=== PATIENT | male | born 1935 | race Caucasian/White ===

== ENCOUNTER → 2016-06-20 | Outpatient (CLI) | payer MEDICARE, OTHER ==
[~2016-06-20] MED LIST: ALDACTONE25 MG PO; ARICEPT10 MG PO; ASPIRIN CHEWABL81 MG PO; ASPIRIN EC81 MG PO; CARAFATE1 GM PO; FERROUS SULFAT325 M2 PO; FLOMAX 0.4 MG0.4 MG PO; HYDROCHLOROTHIA25 MG PO; IBUPROFEN400 MG PO; LEVAQUIN500 MG PO; LISINOPRIL20 MG PO; LOMOTIL 2.5-0.1 EACH PO; LOPERAMIDE2 M1 PO; METOPROLOL SUCC50 MG PO; MIRALAX17 GM PO; NAMENDA5 MG PO; NORCO 7.5-3251 EACH PO; NORVASC5 MG PO; PROTONIX40 MG PO; REGLAN10 MG PO; THERAGRAN M TAB1 EA PO; TRAZODONE HCL50 MG PO; TYLENOL 500 MG500 MG PO; TYLENOL W/CODEIN1 E1 PO; WELLBUTRIN 75 M75 MG PO; ZOFRAN4 MG PO
== END ==
LOC: LAB 09:34
DX: R19.7 Diarrhea, unspecified (principal); K92.2 Gastrointestinal hemorrhage, unspecified
CPT/HCPCS: 36415; 85018

== ENCOUNTER 2016-08-22 16:14 | Inpatient (IN) | payer MEDICARE, OTHER ==
[~2016-08-22] VITALS: Ht 177.8 cm; Wt 80.3 kg
[~2016-08-22 16:14] MED LIST changes: -ASPIRIN CHEWABL81 MG PO; -ASPIRIN EC81 MG PO; -CARAFATE1 GM PO; -IBUPROFEN400 MG PO; -LEVAQUIN500 MG PO; -TYLENOL W/CODEIN1 E1 PO
[2016-08-22 17:55] LABS: HEMOGLOBIN 11.5 gm/dl (14.0-17.5); RED BLOOD COUNT 4.69 M/UL (4.20-5.50); WHITE BLOOD COUNT 3.3 K/UL (4.5-11.0)
[2016-08-22] MEDS ORDERED: IBUPROFEN400 MG PO (20:30)
[2016-08-24 04:55] LABS: HEMOGLOBIN 10.8 gm/dl (14.0-17.5); RED BLOOD COUNT 4.45 M/UL (4.20-5.50); WHITE BLOOD COUNT 3.1 K/UL (4.5-11.0)
[2016-08-25 04:23] LABS: HEMOGLOBIN 11.8 gm/dl (14.0-17.5); RED BLOOD COUNT 4.86 M/UL (4.20-5.50); WHITE BLOOD COUNT 3.3 K/UL (4.5-11.0)
[2016-08-27] MEDS ORDERED: LEVAQUIN500 MG PO (14:46)
[2016-08-27] MEDS ORDERED: TYLENOL W/CODEIN1 E1 PO (14:46)
[2016-08-27] MEDS ORDERED: ASPIRIN EC81 MG PO (14:47)
[2016-08-27] MEDS ORDERED: CARAFATE1 GM PO (14:52)
[2016-08-27] MEDS ORDERED: ASPIRIN CHEWABL81 MG PO (14:52)
== END 2016-08-27 17:12 | disposition home or self-care (01) | DRG 243 ==
LOC: ER1 16:14 → ZEROF 18:50 → PROG CARE 19:55 → ZEROF 19:55 → PROG CARE 20:08 → MED SURG 4 08-26 06:11
PROVIDERS: Emergency Medicine; Internal Medicine; ADMIT Internal Medicine Infectious Disease
PROC: 0JH606Z Insertion of Pacemaker, Dual Chamber into Chest Subcutaneous Tissue and Fascia, Open Approach (ICD-10-PCS; principal; 2016-08-25)
PROC: 02H63JZ Insertion of Pacemaker Lead into Right Atrium, Percutaneous Approach (ICD-10-PCS; 2016-08-25)
PROC: 02HK3JZ Insertion of Pacemaker Lead into Right Ventricle, Percutaneous Approach (ICD-10-PCS; 2016-08-25)
DX: R00.1 Bradycardia, unspecified (principal); N17.9 Acute kidney failure, unspecified; I12.9 Hypertensive chronic kidney disease with stage 1 through stage 4 chronic kidney disease, or unspecified chronic kidney disease; N18.3 Chronic kidney disease, stage 3 (moderate); D75.89 Other specified diseases of blood and blood-forming organs; J32.9 Chronic sinusitis, unspecified; R07.9 Chest pain, unspecified; K21.9 Gastro-esophageal reflux disease without esophagitis; N40.0 Benign prostatic hyperplasia without lower urinary tract symptoms; M06.9 Rheumatoid arthritis, unspecified; D72.818 Other decreased white blood cell count; Z79.899 Other long term (current) drug therapy; F17.210 Nicotine dependence, cigarettes, uncomplicated; Z82.49 Family history of ischemic heart disease and other diseases of the circulatory system; Z98.890 Other specified postprocedural states; H91.90 Unspecified hearing loss, unspecified ear; F03.90 Unspecified dementia, unspecified severity, without behavioral disturbance, psychotic disturbance, mood disturbance, and anxiety
CPT/HCPCS: 33208; 36415; 71010; 78452; 80048; 80053; 80061; 82550; 82553; 83874; 84443; 84484; 85025; 85027; 93005; 93017; 99285; A9502; C1785; C1898; J1644; J2250; J2785; J3010; J3370; J7030; J7040; J7050; J7070

== ENCOUNTER 2016-08-28 16:46 | Emergency (ER) | payer MEDICARE, OTHER ==
[~2016-08-28 16:46] MED LIST changes: +ASPIRIN CHEWABL81 MG PO; +ASPIRIN EC81 MG PO; +CARAFATE1 GM PO; +IBUPROFEN400 MG PO; +LEVAQUIN500 MG PO; +TYLENOL W/CODEIN1 E1 PO
== END 2016-08-28 18:12 | disposition home or self-care (01) ==
LOC: ER1 16:46
DX: R20.0 Anesthesia of skin (principal); Z95.0 Presence of cardiac pacemaker
CPT/HCPCS: 93005; 99283

== ENCOUNTER 2021-04-09 11:25 | Inpatient (IN) | payer MEDICARE, OTHER ==
[~2021-04-09] VITALS: Ht 177.8 cm; Wt 92.5 kg
[~2021-04-09 11:25] MED LIST changes: +CLARITIN10 MG PO; -FLOMAX 0.4 MG0.4 MG PO; +IMDUR ER TAB 3030 MG PO; +NITROSTAT0.4 MG SL; +PERCOCET 5/325 T1 EA PO; -THERAGRAN M TAB1 EA PO; +TOPROL XL50 MG PO; +ULTRAM50 MG PO; +VIBRAMYCIN100 MG PO; +ZANTAC150 MG PO
[2021-04-09] MEDS ORDERED: FLOMAX 0.4 MG0.4 MG PO (11:53)
[2021-04-09] MEDS ORDERED: THERAGRAN M TAB1 EA PO (11:53)
[2021-04-09 12:11] LABS: HEMOGLOBIN 13.8 gm/dl (14.0-17.5); RED BLOOD COUNT 4.93 M/UL (4.20-5.50); WHITE BLOOD COUNT 3.1 K/UL (4.5-11.0)
[2021-04-09 12:49] LABS: BUN/CREATININE RATIO 14 (0-10)
[2021-04-09] MEDS ORDERED: NAMZARIC 28 MG1 EACH PO (15:47)
[2021-04-09] MEDS ORDERED: BENTYL 10MG CAP10 MG PO (15:52)
[2021-04-09] MEDS ORDERED: FAMOTIDINE20 MG PO (18:23)
[2021-04-09] MEDS ORDERED: DRISDOL1250 MCG PO (18:23)
[2021-04-09] MEDS ORDERED: PROAIR DIGIHAL90 MCG INH (18:23)
[2021-04-10 04:17] LABS: HEMOGLOBIN 13.8 gm/dl (14.0-17.5); RED BLOOD COUNT 4.9 M/UL (4.20-5.50); WHITE BLOOD COUNT 2.4 K/UL (4.5-11.0)
[2021-04-10] MEDS ORDERED: ATORVASTATIN CA10 MG PO (17:47)
[2021-04-10] MEDS ORDERED: DEXAMETHASONE 44 MG PO (17:47)
[2021-04-10] MEDS ORDERED: ASPIRIN EC81 MG PO (17:47)
[2021-04-10] MEDS ORDERED: [UNRECOGNIZED DRUG - OTHER] (17:49)
[2021-04-10] MEDS ORDERED: NS (17:49)
--- NOTE | 2021-04-10 18:13 | NUR ---
TALKED TO [facility] ABOUT PATIENT, GAVE UPDATE
[2021-04-11 06:46] LABS: HEMOGLOBIN 12.6 gm/dl (14.0-17.5); RED BLOOD COUNT 4.66 M/UL (4.20-5.50)
[2021-04-12 07:06] LABS: HEMOGLOBIN 13.7 gm/dl (14.0-17.5); RED BLOOD COUNT 4.91 M/UL (4.20-5.50); WHITE BLOOD COUNT 2.8 K/UL (4.5-11.0)
== END 2021-04-12 12:25 | disposition short-term general hospital (02) | DRG 64 ==
LOC: ER1 11:25 → M/S 16:24 → CDU 16:24 → M/S 04-10 14:16
PROVIDERS: Emergency Medicine; Internal Medicine Nephrology; Student in an Organized Health Care Education/Training Program; ADMIT Internal Medicine
PROC: B24BZZZ Ultrasonography of Heart with Aorta (ICD-10-PCS; 2021-04-10)
PROC: 8E0ZXY6 Isolation (ICD-10-PCS; 2021-04-10)
PROC: 3E0333Z Introduction of Anti-inflammatory into Peripheral Vein, Percutaneous Approach (ICD-10-PCS; principal; 2021-04-11)
DX: I63.9 Cerebral infarction, unspecified (principal); U07.1 COVID-19; J12.82 Pneumonia due to coronavirus disease 2019; G81.91 Hemiplegia, unspecified affecting right dominant side; N17.9 Acute kidney failure, unspecified; F03.90 Unspecified dementia, unspecified severity, without behavioral disturbance, psychotic disturbance, mood disturbance, and anxiety; F17.210 Nicotine dependence, cigarettes, uncomplicated; E78.5 Hyperlipidemia, unspecified; I12.9 Hypertensive chronic kidney disease with stage 1 through stage 4 chronic kidney disease, or unspecified chronic kidney disease; E66.9 Obesity, unspecified; I49.5 Sick sinus syndrome; E11.9 Type 2 diabetes mellitus without complications; K21.9 Gastro-esophageal reflux disease without esophagitis; R29.810 Facial weakness; R29.704 NIHSS score 4; D64.9 Anemia, unspecified; E86.0 Dehydration; G89.4 Chronic pain syndrome; N40.0 Benign prostatic hyperplasia without lower urinary tract symptoms; N18.31 Chronic kidney disease, stage 3a; M06.9 Rheumatoid arthritis, unspecified; D72.819 Decreased white blood cell count, unspecified; Z95.0 Presence of cardiac pacemaker; Z90.49 Acquired absence of other specified parts of digestive tract; Z68.35 Body mass index [BMI] 35.0-35.9, adult; Z79.01 Long term (current) use of anticoagulants; Z79.82 Long term (current) use of aspirin
CPT/HCPCS: ECHO; 36415; 70450; 71045; 80048; 80053; 80061; 82550; 82553; 82607; 82728; 82746; 83540; 83550; 83735; 83874; 83880; 84439; 84443; 84484; 85025; 85027; 85610; 85730; 86140; 93005; 93306; 93880; 94640; 94664; 94760; 97161; 97166; 99285; J1650; U0002